=== PATIENT | female | born 1995 | race Two or more races ===

== ENCOUNTER 2016-12-02 16:33 | Emergency (ER) | payer OTHER ==
[~2016-12-02] VITALS: Ht 162.6 cm; Wt 63.5 kg
[2016-12-02 18:01] LABS: MICROSCOPIC INDICATED? MAN YES (NO)
[2016-12-02 18:27] LABS: BACTERIA, URINE MOD AMOUNT; HYALINE CAST, URINE NONE SEEN /lpf (0-1); MICROSCOPIC EXAM PERFORMED; RBC, URINE TNTC /hpf (0-3); SQUAMOUS EPITHELIAL CELL URINE SMALL AMOUNT /hpf (SMALL AMT); WBC, URINE 30-40 /hpf (0-3)
[2016-12-02] MEDS ORDERED: CIPR500T89 PO (18:48)
[2016-12-02] MEDS ORDERED: PYRI200T5 PO (18:48)
[2016-12-02 19:06] VITALS: BP 107/58
== END 2016-12-02 19:10 | disposition home or self-care (01) ==
LOC: M ED 17:36
DX: N30.00 Acute cystitis without hematuria (principal)